=== PATIENT | male | born 1955 | race African-American/Black ===

== ENCOUNTER → 2018-02-22 | Outpatient (CLI) | payer OTHER ==
[2018-02-23 09:07] LABS: RHEUMATOID ARTHRITIS FACTOR <10.0 IU/mL (0.0-13.9)
[2018-02-24 17:34] LABS: CCP ANTIBODIES IGG/IGA 9 units (0-19)
== END | disposition home or self-care (01) ==
LOC: LAB 09:03
PROVIDERS: Internal Medicine
DX: M19.021 Primary osteoarthritis, right elbow (principal); M79.641 Pain in right hand; M79.642 Pain in left hand; R20.2 Paresthesia of skin

== ENCOUNTER → 2018-02-25 | Outpatient (CLI) | payer OTHER | END | disposition home or self-care (01) | LOC: RAD 11:27 | DX: M17.0 Bilateral primary osteoarthritis of knee (principal) ==

== ENCOUNTER → 2018-04-13 | Outpatient (CLI) | payer OTHER | END | disposition home or self-care (01) | LOC: ORTHO 01:59 | DX: R09.81 Nasal congestion (principal); R05 Cough; R06.02 Shortness of breath; I10 Essential (primary) hypertension ==

== ENCOUNTER → 2020-07-27 | Outpatient (CLI) | payer OTHER ==
[2020-07-27 11:37] LABS: BASO # 0.1 10*3/uL (0.0-0.1); BASO % 1.3 % (0.0-1.0); EOS # 0.5 10*3/uL (0.0-0.4); EOS % 9.3 % (1.0-4.0); HEMATOCRIT 45.3 % (42.0-52.0); LYMPH # 1.5 10*3/uL (1.3-4.4); LYMPH % 27.5 % (27.0-41.0); MEAN CELL VOLUME 88.5 fl (80.0-94.0); MEAN CORPUSCULAR HGB 26.8 pg (27.0-31.0); MEAN CORPUSCULAR HGB CONC 30.2 g/dl (33.0-37.0); MEAN PLATELET VOLUME 13.1 fl (9.6-12.3); MONO # 0.8 10*3/uL (0.1-1.0); MONO % 14.2 % (3.0-9.0); NEUT # 2.5 10*3/uL (2.3-7.9); NEUT % 47.5 % (47.0-73.0); PLATELET COUNT AUTOMATED 190 10*3/uL (130-400); RED BLOOD COUNT 5.12 10*6/uL (4.50-5.90); RED CELL DISTRI WIDTH 14.2 % (0-14.5); WHITE BLOOD COUNT 5.3 10*3/uL (4.8-10.8)
[2020-07-27 11:56] LABS: ALBUMIN 3.5 gm/dl (3.1-4.5); ALKALINE PHOSPHATASE 78 U/L (45-117); BUN 18 mg/dl (7-24); CHLORIDE 104 mmol/L (98-107); CREATININE 1.31 mg/dL (0.70-1.30); IRON 57 ug/dL (65-175); POTASSIUM 4.3 mmol/L (3.5-5.1); SGOT/AST 15 IU/L (3-35); SGPT/ALT 20 U/L (12-78); SODIUM 138 mmol/L (136-145); TOTAL IRON BINDING CAPACITY 404 ug/dl (250-450); TOTAL PROTEIN 8.1 gm/dL (6.4-8.2)
[2020-07-27 12:04] LABS: FREE T4 0.64 ng/dl (0.76-1.46); THYROID STIM HORMONE (HS) 0.628 uIU/ml (0.358-4.75); URIC ACID 9.1 mg/dL (3.5-7.2)
[2020-07-28 10:15] LABS: RHEUMATOID ARTHRITIS FACTOR <10.0 IU/mL (0.0-13.9)
[2020-07-29 13:06] LABS: PROSTATE SPECIFIC AG FREE 0.75 ng/mL; PROSTATE SPECIFIC AG, SERUM 1.5 ng/mL (0.0-4.0)
== END | disposition home or self-care (01) ==
LOC: LAB 10:02
PROVIDERS: ATTEND Internal Medicine
DX: Z12.5 Encounter for screening for malignant neoplasm of prostate (principal); M25.50 Pain in unspecified joint

== ENCOUNTER → 2020-08-20 | Outpatient (CLI) | payer BC ==
[2020-08-21 16:09] LABS: ANTI-DSDNA ANTIBODIES 1 IU/mL (0-9); ANTI-RNP ANTIBODIES <0.2 AI (0.0-0.9); SJOGREN ANTI-SS-A <0.2 AI (0.0-0.9); SJOREN AB, ANTI-SS-B <0.2 AI (0.0-0.9)
== END | disposition home or self-care (01) ==
LOC: LAB 09:09
PROVIDERS: ATTEND Internal Medicine
DX: J98.11 Atelectasis (principal); R76.8 Other specified abnormal immunological findings in serum; I10 Essential (primary) hypertension; R06.02 Shortness of breath

== ENCOUNTER → 2020-09-09 | Outpatient (CLI) | payer BC ==
[2020-09-09 09:14] LABS: BILIRUBIN Negative (Negative); BLOOD Negative (Negative); CLARITY Clear (Clear); COLOR Yellow (Yellow); GLUCOSE Negative (Negative); KETONE Negative (Negative); LEUKO ESTERASE Negative (Negative); NITRITE Negative (Negative); PH 7.5 (4.5-8.0)
[2020-09-09 10:43] LABS: BACTERIA TRACE; WBC 0-2 wbc/hpf (0-5)
== END | disposition home or self-care (01) ==
LOC: LAB 08:22
PROVIDERS: ATTEND Internal Medicine Nephrology
DX: N18.31 Chronic kidney disease, stage 3a (principal); E83.9 Disorder of mineral metabolism, unspecified

== ENCOUNTER → 2020-09-11 | Outpatient (CLI) | payer BC | END | disposition home or self-care (01) | LOC: LAB 01:02 | PROVIDERS: ATTEND Internal Medicine Nephrology | DX: E83.9 Disorder of mineral metabolism, unspecified (principal) ==

== ENCOUNTER → 2020-09-17 | Outpatient (CLI) | payer BC | END | disposition home or self-care (01) | LOC: US 00:13 | PROVIDERS: ATTEND Internal Medicine Nephrology | DX: N18.31 Chronic kidney disease, stage 3a (principal); N32.89 Other specified disorders of bladder; E83.9 Disorder of mineral metabolism, unspecified ==

== ENCOUNTER → 2021-09-03 | Outpatient (CLI) | payer BC ==
[2021-09-03 11:48] LABS: ALKALINE PHOSPHATASE 85 U/L (45-117); BUN 15 mg/dl (7-24); CHLORIDE 106 mmol/L (98-107); CREATININE 1.05 mg/dL (0.70-1.30); FREE T4 0.64 ng/dl (0.76-1.46); POTASSIUM 4.3 mmol/L (3.5-5.1); SGOT/AST 30 IU/L (3-35); SGPT/ALT 36 U/L (12-78); SODIUM 141 mmol/L (136-145); TOTAL PROTEIN 8.1 gm/dL (6.4-8.2)
== END | disposition home or self-care (01) ==
LOC: LAB 10:09
PROVIDERS: ATTEND Internal Medicine
DX: M25.421 Effusion, right elbow (principal); R09.89 Other specified symptoms and signs involving the circulatory and respiratory systems; M19.021 Primary osteoarthritis, right elbow; R60.0 Localized edema

== ENCOUNTER → 2021-09-19 | Outpatient (CLI) | payer BC | END | disposition home or self-care (01) | LOC: CARD 09-11 11:00 | PROVIDERS: ATTEND Internal Medicine | DX: I50.31 Acute diastolic (congestive) heart failure (principal) ==

== ENCOUNTER 2021-11-26 09:27 | Emergency (ER) | payer BC ==
[~2021-11-26] VITALS: Ht 172.7 cm; Wt 136.1 kg
[2021-11-26 10:09] LABS: BASO # 0.1 10*3/uL (0.0-0.1); BASO % 1.1 % (0.0-1.0); EOS # 0.3 10*3/uL (0.0-0.4); EOS % 7.8 % (1.0-4.0); LYMPH # 1.1 10*3/uL (1.3-4.4); LYMPH % 24.9 % (27.0-41.0); MEAN CELL VOLUME 89.6 fl (80.0-94.0); MEAN CORPUSCULAR HGB 27.5 pg (27.0-31.0); MEAN CORPUSCULAR HGB CONC 30.7 g/dl (33.0-37.0); MEAN PLATELET VOLUME 11.9 fl (9.6-12.3); MONO # 0.6 10*3/uL (0.1-1.0); MONO % 14.6 % (3.0-9.0); NEUT # 2.3 10*3/uL (2.3-7.9); NEUT % 51.4 % (47.0-73.0); PLATELET COUNT AUTOMATED 158 10*3/uL (130-400); RED BLOOD COUNT 4.69 10*6/uL (4.50-5.90); RED CELL DISTRI WIDTH 14.6 % (0-14.5); WHITE BLOOD COUNT 4.4 10*3/uL (4.8-10.8)
[2021-11-26] MEDS ORDERED: DICLOFENAC SOD75 MG PO (10:19)
[2021-11-26] MEDS ORDERED: LISINOPRIL40 MG PO (10:19)
[2021-11-26] MEDS ORDERED: ATORVASTATIN CA20 M1 PO (10:19)
[2021-11-26] MEDS ORDERED: POTASSIUM CHLO20 ME4 PO (10:19)
[2021-11-26 10:20] LABS: ACT PARTIAL THROMBO TIME 29.1 SECONDS (20.0-32.1)
[2021-11-26] MEDS ORDERED: Percocet 325 MG1 TAB PO (10:20)
[2021-11-26] MEDS ORDERED: PREGABALIN150 MG PO (10:20)
[2021-11-26] MEDS ORDERED: BUMETANIDE1 MG PO (10:21)
[2021-11-26 10:28] LABS: ALKALINE PHOSPHATASE 84 U/L (45-117); BUN 16 mg/dl (7-24); CHLORIDE 105 mmol/L (98-107); CREATININE 1.04 mg/dL (0.70-1.30); POTASSIUM 4.4 mmol/L (3.5-5.1); SGOT/AST 20 IU/L (3-35); SGPT/ALT 28 U/L (12-78); SODIUM 139 mmol/L (136-145); TOTAL PROTEIN 7.5 gm/dL (6.4-8.2)
== END 2021-11-26 16:58 | disposition home or self-care (01) ==
LOC: ED 09:27
PROVIDERS: Emergency Medicine
DX: R06.02 Shortness of breath (principal); Z20.822 Contact with and (suspected) exposure to COVID-19; R55 Syncope and collapse; I10 Essential (primary) hypertension; Z79.899 Other long term (current) drug therapy; Z88.0 Allergy status to penicillin

== ENCOUNTER → 2021-12-10 | Outpatient (CLI) | payer BC ==
[~2021-12-10] MED LIST: ATORVASTATIN CA20 M1 PO; BUMETANIDE1 MG PO; DICLOFENAC SOD75 MG PO; LISINOPRIL40 MG PO; POTASSIUM CHLO20 ME4 PO; PREGABALIN150 MG PO; Percocet 325 MG1 TAB PO
== END | disposition home or self-care (01) ==
LOC: CARD 00:09
PROVIDERS: ATTEND Internal Medicine
DX: I50.31 Acute diastolic (congestive) heart failure (principal)

== ENCOUNTER → 2023-01-07 | Outpatient (CLI) | payer OTHER | END | disposition home or self-care (01) | LOC: LAB 07:52 | PROVIDERS: ATTEND Internal Medicine | DX: R21 Rash and other nonspecific skin eruption (principal) ==